=== PATIENT | male | born 1995 | race Caucasian/White ===

== ENCOUNTER 2025-01-05 10:21 | Outpatient (AMB) | payer OTHER, SELFPAY ==
--- NOTE | 2025-01-05 10:31 | MHC.PC.OV ---
Vital Signs 01/05/25 10:32 Height 5 ft 11 in Weight 213 lb BMI 29.7 BP 126/84 Blood Pressure Location Lt brachial Position Sitting Respiration 18 Pulse 81 Pulse Source Pulse Oximeter Temp 97.3 F Temp Source Temporal Artery Scan Pulse Oximetry (%) 94 Oxygen Delivery Method Room Air Intake Visit Reasons: establish care Health Teacher Required: No Accompanied by: Self / Same As Patient Allergies No Known Allergies Allergy (Verified 01/05/25 10:53) Medication List - Last Reconciled 01/05/25 by JACQUELINE Escobar alprazolam 0.5 mg PO BEDTIME PRN sertraline 50 mg PO DAILY Tobacco use date assessed: 01/05/25 Dental Screening Dental Screen Date: 01/05/25 Did you have a dental visit in the last 12 months?: Yes Did you have a dental problem in the last 6 months where you did not have access to dental care?: No Was dental information given to patient?: Patient has dentist HPI establish care HPI Details Previous PCP: Dr. Eid Last visit: May, Last PE:same Specialist: no OBGYN:n/a Past medical history:anxiety, autism, Medications: Family HX: grandmother cortical basal , grand father dementia vascular Problem: [facility] in [facility] Medical History Anxiety Social History Household Members: Family Housing: House Alcohol intake: never Patient Tobacco Use Status: Never used Tobacco e-Cigarette/Vaping Use: Never Used Use of substances other than those prescribed or required for medical reasons: No Current occupational status: unemployed Cognitive needs: No Hearing needs: No Vision needs: No Questionnaire PHQ-9 Over the last 2 weeks, how often have you been bothered by any of the following problems? 1. Little interest or pleasure in doing things: not at all 2. Feeling down, depressed, or hopeless: not at all 3. Trouble falling or staying asleep, or sleeping too much: not at all 4. Feeling tired or having little energy: not at all 5. Poor appetite or overeating: not at all 6. Feeling bad about yourself - or that you are a failure or have let yourself or your family down: not at all 7. Trouble concentrating on things, such as reading the newspaper or watching television: not at all 8. Moving or speaking so slowly that other people could have noticed. Or the opposite - being so fidgety or restless that you have been moving around a lot more than usual: not at all 9. Thoughts that you would be better off or of hurting yourself in some way: not at all Total score: 0 Source: Developed by Drs. Frank Garcia, Sun Waller, Kofi Fraire and colleagues, with an educational elizabeth from [employer] Thrive Questionnaire Date Thrive assessed: 01/03/25 I am a: Parent/Caregiver What is your living situation today?: I have a steady place to live Within the past 12 months, did the food you bought not last and you didn't have the money to get more?: Never true Within the past 12 months, did you worry whether your food would run out before you got money to buy more?: Never true Do you have trouble paying for medicines?: No Do you have trouble getting transportation to medical appointments?: No Do you have trouble paying your heating and electricity bill?: No Do you have trouble taking care of your child, family member or friend?: No Do you have trouble with day-to-day activities such as bathing, preparing meals, shopping, managing finances, etc.?: Yes Are you currently unemployed and looking for a job?: No Are you interested in more education?: No Please select the resources that you would like help with: None Currently or been in a relationship where the following occur: No concerns reported THRIVE Score: 0 AUDIT C Alcohol Use Questionnaire (AUDIT-C) 1. How often do you have a drink containing alcohol?: Never Total Score: 0 NORMA-7 AMB Questionnaire NORMA-7 Feeling nervous, anxious, or on edge: 3 = Nearly every day Not being able to stop or control worryin = Several days Worrying too much about different things: 1 = Several days Trouble relaxin = Several days Being so restless that it is hard to sit still: 0 = Not at all Becoming easily annoyed or irritable: 1 = Several days Feeling afraid as if something awful might happen: 1 = Several days Total NORMA-7 score (0-4 normal; 5-9 mild; 10-14 moderate; 15-21 severe): 8 Source: Developed by Drs. Frank Garcia, Sun Waller, Kofi Fraire and colleagues, with an educational elizabeth from [employer] Review of Systems Const Denies headache(s) Eyes Denies loss of vision ENT Denies vertigo, Denies dizziness, Denies headache(s) and Denies sore throat Card Denies chest pain, Denies leg edema and Denies lightheadedness Resp Denies cough, Denies hemoptysis and Denies wheezing GI Denies abdominal pain, Denies melena, Denies constipation, Denies diarrhea and Denies vomiting Denies dysuria, Denies urinary frequency and Denies urinary urgency Musc Denies arthralgias, Denies joint swelling, Denies numbness and Denies tingling Neuro Denies Abnormal speech present, Denies behavioral changes, Denies vertigo, Denies dizziness, Denies headache(s), Denies loss of vision, Denies memory loss, Denies numbness and Denies tingling Psych Denies anxiety, Denies behavioral changes, Denies depression, Denies memory loss and Denies panic attacks Catrachito/Lymph Denies easy bleeding and Denies easy bruising Aller/Immun Denies wheezing Physical exam (Primary Care) Vital Signs: Last Vital Signs Temp 97.3 F 01/05/25 10:32 Pulse 81 01/05/25 10:32 Resp 18 01/05/25 10:32 BP 126/84 01/05/25 10:32 Pulse Ox 94 01/05/25 10:32 Oxygen Delivery Method Room Air 01/05/25 10:32 BMI result Body Mass Index 29.7 Tobacco/Smoking Status: Tobacco use Status Tobacco use date assessed 01/05/25 01/05/25 10:41 Patient Tobacco Use Status Never used Tobacco 01/05/25 10:41 e-Cigarette/Vaping Use Never Used 01/05/25 10:41 PHQ-9: PHQ-9 Score PHQ-9: Total score 0 01/05/25 10:53 Thrive Assessment: Date of Thrive Assessment Date Thrive assessed 01/03/25 01/05/25 10:41 Currently or been in a relationship where the following occur: No concerns reported Const General: healthy appearing, no acute distress, alert and awake Nutritional Appearance: well nourished Orientation/consciousness: oriented to person, oriented to place and oriented to time HENMT Ears: TM's normal bilaterally General nose exam: Normal nasal mucous membranes and turbinates present Eyes Conjunctivae: conjunctivae normal Sclerae: sclerae normal Pupils: Equal, round and reactive pupils present Neck Neck: Yes no lymphadenopathy and Yes no JVD Thyroid: Thyroid normal Carotids: no bruits Resp Effort & Inspection: normal respiratory effort and not tachypneic Auscultation: no crackles, no rales, no rhonchi and no wheezes Cardio Rate: regular rate Rhythm: regular rhythm Heart sounds: no murmurs and normal S1 and S2 GI Palpation (GI): Soft to palpation, nontender, no hepatomegaly and no splenomegaly Auscultation: normal bowel sounds Skin General skin exam: no rashes or lesions noted and dry skin Neuro General: oriented to person, oriented to place and oriented to time Cranial nerves: Yes Equal, round and reactive pupils present Speech: No Abnormal speech present Gait exam (Neuro): Normal gait present Motor exam (neuro): no tremor noted Extrem Right upper extremity: full ROM Left upper extremity: full ROM Right lower extremity: full ROM; no edema Left lower extremity: full ROM; no edema Psych Mental Status: mental status grossly normal Speech and movement: Normal speech and movement present Affect: normal affect Attitude: cooperative Thought process: Normal thought process present Office Procedures Flu Questionnaire Does the patient have a severe egg allergy?: No Does the patient have severe life threatening allergies?: No Does the patient have a fever or illness today?: No Has the patient ever had Guillain-Blaine Syndrome?: No Has the patient ever had any past reaction to a flu shot?: No Immunizations Fluarix [id number] (PF) 45 mcg (15 mcg x 3)/0.5 mL IM syringe Performing Provider: JACQUELINE Escobar [facility] Administered by: PALLAVI Sprague on 01/05/25 10:59 Dose Route Admin Location Dispensed Lot Number Expiration Date [facility] 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 mL IM Left Deltoid 0.5 mL [id number] 09/14/25 [id number] [employer] VIS Given Date VIS Provided VIS Publication Date 01/05/25 Single Vaccine 24 Eligibility Eligibility Date Funding Source Not [facility] Eligible 01/05/25 Private Coding Assessment & Plan Assessment & Plan Orders: Orders Lipid Panel 5 Months Z00.00 - Encounter for general adult medical examination without abnormal findings Vitamin D 25-OH Total 5 Months Z00.00 - Encounter for general adult medical examination without abnormal findings Influenza [id number] Immunization Today Z23 - Encounter for immunization Complete Blood Count Auto Diff 5 Months Z00.00 - Encounter for general adult medical examination without abnormal findings Comprehensive Guy. Panel Fast 5 Months Z00.00 - Encounter for general adult medical examination without abnormal findings UA CC w/rflx Micro + Cult 5 Months Z00.00 - Encounter for general adult medical examination without abnormal findings TSH reflex Free T4 5 Months Z00.00 - Encounter for general adult medical examination without abnormal findings Medications: New sertraline 50 mg PO DAILY 90 tabs 3RF
[2025-01-05 10:32] VITALS: BP 126/84; PULSE 81; RESP 18; TEMP 36.3; O2SAT 94; BMI 29.7
--- OUTSIDE RECORDS SUMMARY | 2025-01-05 12:17 | XMS_ITS ---
Author Name [facility] Organization Unknown History of Medication Use Medication Directions Dispensed Refills Start Date End Date Stat Sertraline HCl 100 MG Oral Tablet Sertraline HCl 100 MG Oral Tablet QTY: 135 tablet Days: 90 Refills: 1 Written: 10/02/19 Patient Instructions: as directed - 1 1/2 tabs daily 07/02/2018 02/24/2020 completed Sertraline HCl 100 MG Oral Tablet Sertraline HCl 100 MG Oral Tablet QTY: 90 tablet Days: 90 Refills: 1 Written: 04/11/21 Patient Instructions: once a day 01/21/2018 06/05/2022 aborted Sertraline HCl 50 MG Oral Tablet Sertraline HCl 50 MG Oral Tablet QTY: 90 tablet Days: 90 Refills: 3 Written: 06/05/22 Patient Instructions: Take one pill once a day 11/20/2017 01/21/2018 active Sertraline HCl 25MG Oral Tablet Sertraline HCl 25 MG Oral Tablet QTY: 90 tablet Days: 90 Refills: 1 Written: 11/19/17 Patient Instructions: once a day 05/15/2017 11/20/2017 aborted ALPRAZolam 0.5 MG Oral Tablet ALPRAZolam 0.5 MG Oral Tablet QTY: 30 tablet Days: 30 Refills: 1 Written: 06/05/22 Patient Instructions: as directed - 1 tab daily as needed for panic/anxiety 10/21/2013 06/05/2022 active ALPRAZolam 0.25 MG OR TABS ALPRAZolam 0.25 MG Oral Tablet QTY: 30 tablet Days: 30 Refills: 1 Written: 07/28/12 Patient Instructions: 1-2 tbs as needed for panic/anxiety 07/28/2012 10/21/2013 completed Amoxicillin 875 MG OR TABS Amoxicillin 875 MG Oral Tablet QTY: 20 tablet Days: 10 Refills: 0 Written: 02/13/12 Patient Instructions: 02/13/2012 07/28/2012 aborted Allergies Allergen Reaction Severity Comment Documented Date Source Statu s NO KNOWN ALLERGIES [facility] Problems Problem Status Onset Date Problem Type Date of Resoluti on Source Pervasive developmental disorder (disorder) active 2011-10-17 ProblemAct [facility] Panic disorder without agoraphobia (disorder) active 2012-07-28 ProblemAct [facility] Encounters Encounter Type Encounter Reason Primary Diagnosis Location Date Ambulatory [facility] Care Team Organization Name Specialty Phone Email Start Date End Da te [facility] HERNANDEZ GERBER Primary Care 06/05/2022
--- OUTSIDE RECORDS SUMMARY | 2025-01-05 12:17 | XMS_ITS | Clinical Summary ---
Author Organization [facility] Address [address] [place] [address] Care Team Providers Care Leader Assembler Name Role Phone Howard Manrique MD Primary Care Provider [phone] Allergies No known active allergies Medications No known medications Active Problems No known active problems Social History Tobacco Use Types Packs/Day Years Used Date Smoking Tobacco: Never Smokeless Tobacco: Never Alcohol Use Standard Drinks/Week Comments Never 0 (1 standard drink = 0.6 oz pur e alcohol) Sex and Gender Information Value Date Recorded Sex Assigned at Female 03/05/2021 2:50 PM EST Gender Identity Female 03/05/2021 2:50 PM EST Sexual Orientation Not on file Job Start Date Occupation Industry Not on file Not on file Not on file Last Filed Vital Signs Vital Sign Reading Time Taken Comments Blood Pressure 167/85 03/05/2021 2:36 PM EST Pulse 93 03/05/2021 2:36 PM EST Temperature 37.4 C (99.4 F) 03/05/2021 2:36 PM EST Respiratory Rate 20 03/05/2021 2:36 PM EST Oxygen Saturation 98% 03/05/2021 2:36 PM EST Inhaled Oxygen Concentration - - Weight 99.8 kg (220 lb) 03/05/2021 2:36 PM EST Height 180.3 cm (5' 11 ) 03/05/2021 2:36 PM EST Body Mass Index 30.68 03/05/2021 2:36 PM EST Plan of Treatment Not on file Care Teams Leader Assembler Relationship Specialty Start Date End Date Howard Manrique MD [address] [place] [address] PCP - General Family Medicine 03/05/21
== END 2025-01-05 12:14 | disposition home or self-care (01) ==
LOC: HO.HMCH 10:22
DX: Z23 Encounter for immunization (principal)

== ENCOUNTER → 2025-01-05 10:21 | Outpatient (BNVA) | payer OTHER, SELFPAY | DX: F84.0 Autistic disorder (principal); F41.9 Anxiety disorder, unspecified; Z23 Encounter for immunization; Z76.89 Persons encountering health services in other specified circumstances | CPT/HCPCS: 90471; 90656; 96127; 99202 ==